=== PATIENT | female | born 1955 | race Caucasian/White ===

== ENCOUNTER → 2017-01-26 | Outpatient (CLI) | payer BC ==
[~2017-01-26] MED LIST: ACET-461 PO; CEPH500C PO; ESTR0.9T PO; SULF1TAB38 PO; VNL75T PO
--- NOTE | 2017-01-26 17:22 | Diagnostic Imaging Report ---
PROCEDURE: MRI right joint lower extremity without contrast. TECHNIQUE: Multiplanar, multisequence MR imaging of the right knee was performed without contrast. COMPARISON: None available. INDICATION: Medial knee pain without known injury. FINDINGS: MENISCI Medial meniscus: Mild degenerative free edge tearing of the body and posterior horn. Lateral meniscus: Minimal degenerative free edge tearing of the body and posterior horn. LIGAMENTS ACL: Intact. PCL: Intact. MCL: Intact. LCL: The lateral collateral ligamentous complex is intact. EXTENSOR MECHANISM The extensor mechanism is intact. CARTILAGE Medial compartment: Focal full-thickness chondral fissuring in the central weightbearing portion of the medial femoral condyle (image 16, series 9) with a large amount of bone marrow edema throughout the medial femoral condyle. There is a potential underlying small subchondral insufficiency fracture. Lateral compartment: The lateral compartment articular cartilage is preserved without high-grade chondromalacia. Patellofemoral compartment: Multifocal high-grade partial- and full-thickness chondral fissuring in the patella with underlying subchondral cystic change and edema. BONE No concerning focal osseous lesion. SOFT TISSUE: Small knee joint effusion with mild synovitis. No Rivera's cyst. IMPRESSION: 1. Probable nondisplaced subchondral insufficiency fracture in the medial femoral condyle with a large amount of surrounding bone marrow edema. 2. There is full-thickness chondral fissuring in the medial femoral condyle at the level of the presumed subchondral insufficiency fracture. However, the degree of edema throughout the medial femoral condyle is disproportionately increased compared to the small area of focal chondral fissuring. For this reason, presumed subchondral insufficiency fracture is present. 3. Mild degenerative free edge tearing of both the medial and lateral menisci. Dictated by: Dictated on workstation # [id number]
== END ==
LOC: RAD 16:02
PROVIDERS: ATTEND Family Medicine
DX: M24.10 Other articular cartilage disorders, unspecified site (principal); R60.0 Localized edema; R93.7 Abnormal findings on diagnostic imaging of other parts of musculoskeletal system
CPT/HCPCS: 73721

== ENCOUNTER → 2018-02-10 | Outpatient (CLI) | payer BC, OTHER ==
[2018-02-10 19:06] LABS: BASOPHILS % (AUTO) 0 % (0-10); EOSINOPHILS # (AUTO) 0.2 10^3/uL (0.0-0.3); EOSINOPHILS % (AUTO) 3 % (0-10); HEMATOCRIT 43 % (35-52); HEMOGLOBIN 14.3 G/DL (11.5-16.0); LYMPHOCYTES # (AUTO) 2.7 X 10^3 (1.0-4.0); LYMPHOCYTES % (AUTO) 38 % (12-44); MEAN CORPUSCULAR HEMOGLOBIN 31 PG (25-34); MEAN CORPUSCULAR HGB CONC 33 G/DL (32-36); MEAN CORPUSCULAR VOLUME 94 FL (80-99); MEAN PLATELET VOLUME 11.4 FL (7.4-10.4); MONOCYTES # (AUTO) 0.8 X 10^3 (0.0-1.0); MONOCYTES % (AUTO) 11 % (0-12); NEUTROPHILS # (AUTO) 3.4 X 10^3 (1.8-7.8); NEUTROPHILS % (AUTO) 48 % (42-75); PLATELET COUNT 265 10^3/uL (130-400); RED BLOOD COUNT 4.57 10^6/uL (4.35-5.85); RED CELL DISTRIBUTION WIDTH 13.3 % (10.0-14.5)
[2018-02-10 19:18] LABS: ALANINE AMINOTRANSFERASE 33 U/L (0-55); ALBUMIN 4.4 GM/DL (3.2-4.5); ALKALINE PHOSPHATASE 107 U/L (40-136); BILIRUBIN,TOTAL 0.4 MG/DL (0.1-1.0); BUN/CREATININE RATIO 28; CALCIUM 9.5 MG/DL (8.5-10.1); CARBON DIOXIDE 24 MMOL/L (21-32); CHLORIDE 106 MMOL/L (98-107); CHOLESTEROL 177 MG/DL (< 200); CREATININE SERUM 0.69 MG/DL (0.60-1.30); GFR ESTIMATED > 60; GLUCOSE 98 MG/DL (70-105); HDL CHOLESTEROL 46 MG/DL (40-60); POTASSIUM 4.9 MMOL/L (3.6-5.0); SODIUM 140 MMOL/L (135-145); TOTAL PROTEIN 7.2 GM/DL (6.4-8.2); TRIGLYCERIDES 103 MG/DL (<150); VLDL CHOLESTEROL 21 MG/DL (5-40)
== END ==
LOC: LABNPT 18:59
PROVIDERS: ATTEND Family Medicine
DX: E10.9 Type 1 diabetes mellitus without complications (principal); E78.2 Mixed hyperlipidemia; F43.21 Adjustment disorder with depressed mood
CPT/HCPCS: 80053; 80061; 83036; 84443; 85025